=== PATIENT | female | born 1995 ===

== ENCOUNTER 2017-11-08 14:23 | Emergency (ER) | payer OTHER ==
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
[2017-11-08 17:11] VITALS: BP 120/82
== END 2017-11-08 17:12 | disposition home or self-care (01) ==
LOC: ED 14:23
DX: S09.90XA Unspecified injury of head, initial encounter (principal); S05.12XA Contusion of eyeball and orbital tissues, left eye, initial encounter; M54.5 Low back pain; V49.9XXA Car occupant (driver) (passenger) injured in unspecified traffic accident, initial encounter; Y92.9 Unspecified place or not applicable
CPT/HCPCS: 70450; 72125; 72131; 74176; 99282